=== PATIENT | female | born 1995 | race Two or more races ===

== ENCOUNTER 2017-04-30 16:32 | Emergency (ER) | payer OTHER ==
[2017-04-30 16:41] VITALS: BP 113/65
--- NOTE | 2017-04-30 17:09 | UC ---
Skin Complaint HPI - History of Current Complaint Chief Complaint: UCSkin Time Seen by Provider: 04/30/17 16:40 Stated Complaint: PATCHES OF DRY SKIN Hx Obtained From: Patient Onset/Duration: Gradual Onset - started 3 weeks ago with one round raised spot on upper R arm. seemd to be getting bigger so has applied lotrimin cream qd for one week and lesion is still getting bigger and the middle is clearing. now has a few more "spots" on lower abd. not itchy. has allergies but does remember runny nose few days before first lesion. does not workout in a gym or been exposed to anyone who does. no new meds, personal care items Onset Severity: Mild Current Severity: Mild Location: Discrete Character: Redness Aggravating Factor(s): Nothing Alleviating Factor(s): Nothing Associated Signs & Symptoms: Positive: Negative - Allergy/Home Medications Allergies/Adverse Reactions: Allergies Allergy/AdvReac Type Severity Reaction Status Date / Time Codeine Allergy See Comment Verified 04/30/17 16:42 Home Medications: Home Medications Cetirizine* [ZyrTEC 10 MG TAB*] 10 mg PO DAILY 04/30/17 [History Confirmed 04/30] Norethindr/Eth Estradiol(Nf) [Lo Loestrin Fe (NF)] 1 tab PO 04/30/17 [History] Triamcinolone Acetonide (Nasal [Nasacort Allergy 24Hr Chi] 55 mcg NA 04/30/17 [ History] Review of Systems Constitutional: Negative Skin: Rash Respiratory: Negative Cardiovascular: Negative Gastrointestinal: Negative Musculoskeletal: Negative Neurological: Negative Psychological: Negative All Other Systems Reviewed And Are Negative: Yes PMH/Surg Hx/FS Hx/Imm Hx Previously Healthy: Yes - Surgical History Surgical History: None - Family History Known Family History: Positive: None - Social History Occupation: Employed Full-time Lives: With Family Alcohol Use: Rare Substance Use Type: None Smoking Status (MU): Never Smoked Tobacco Physical Exam Triage Information Reviewed: Yes Appearance: Well-Appearing, No Pain Distress, Well-Nourished Vital Signs: Initial Vital Signs Temp 98.0 F 04/30/17 16:37 Pulse 82 04/30/17 16:37 Resp 18 04/30/17 16:37 BP 113/65 04/30/17 16:37 Pulse Ox 99 04/30/17 16:37 Vital Signs Reviewed: Yes ENT Exam: Normal Neck exam: Normal Neck: Positive: Supple, Nontender, No Lymphadenopathy Respiratory Exam: Normal Cardiovascular Exam: Normal Cardiovascular: Positive: RRR Neurological Exam: Normal Psychological Exam: Normal Skin Exam: Other - one large oval slightly erythemic and raised dry lesion with central clearing upper R arm. one smaller similar lesion R lower abd and few very small new erythemic "dots" on lower abd (bilateral) Course/Dx - Differential Diagnoses - Skin Complaint Differential Diagnoses: Eczema, Local Allergic Reaction, Tinea, Urticaria, Other - pitariasys rosea - Diagnoses Provider Diagnoses: skin rash Discharge - Discharge Plan Condition: Good Disposition: HOME Patient Education Materials: Tinea Corporis (ED), Pityriasis rosea (ED) Additional Instructions: Today's exam revealed a rash of uncertain nature. It may be a fungal skin infection like ring worm or a viral illness like pityriasis rosea Apply your antifungal cream 2-3 times a day for 1 week. If symptoms worsen at anytime please return her to be rechecked
== END 2017-04-30 17:23 | disposition home or self-care (01) ==
LOC: UCEAST 16:32
DX: R21 Rash and other nonspecific skin eruption (principal)
CPT/HCPCS: 99211; G0463